=== PATIENT | female | born 1960 | race Caucasian/White ===

== ENCOUNTER 2023-04-11 20:37 | Emergency (ER) | payer MEDICAID, OTHER ==
[~2023-04-11] VITALS: TEMP 97.6; Ht 157.5 cm; Wt 111.4 kg
[2023-04-11] MEDS ORDERED: diphenhdrAMINE HCL 50 MG/1 ML VL IV ONE (21:00)
[2023-04-11] MEDS ORDERED: DexAMETHasone SOD PHOS 10MG/1ML VIAL INJ IV ONE (21:00)
[2023-04-11] MEDS ORDERED: FAMOTIDINE (10MG/ML) 2ML VL IV ONE (21:15)
[2023-04-11] MEDS ORDERED: EPINEPHrine HCL 0.5 ML NEB NEB ONE (21:15)
[2023-04-11 21:20] VITALS: PULSE 89; RESP 25; O2SAT 98
[2023-04-11] MEDS ORDERED: VANCOMYCIN 1GM/250ML 250 ML IV ONE (21:30)
[2023-04-11] MEDS ORDERED: AMPICILLIN & SULBACTAM SODIUM 3 GM in SODIUM CHL 0.9% 100 ML IV SCH (21:30)
[2023-04-11 21:35] LABS: Basophils # (auto) 0 10 ^3/uL (0-0.2); Basophils % (auto) 0.6 % (0.0-2.0); Eosinophils # (auto) 0.4 10 ^3/uL (0-0.8); Eosinophils % (auto) 5.3 % (0.0-7.0); Hemoglobin 13.7 g/dL (12.2-16.2); Mean Corpuscular Volume 80.7 fL (80.0-100.0); Neutrophils # (auto) 2.2 10 ^3/uL (1.6-8.6); Nucleated Red Blood Cells % 0.1 %
[2023-04-11 21:37] LABS: Hematocrit 42.7 % (36.0-46.0); Lymphocytes # (auto) 3.9 10 ^3/uL (0.4-5.4); Mean Corpuscular Hemoglobin 25.9 pg (28.0-32.0); Mean Corpuscular Hgb Conc. 32.1 g/dL (32.0-36.0); Monocytes # (auto) 0.5 10 ^3/uL (0-1.3); Monocytes % (auto) 7.3 % (0.0-12.0); Neutrophils % (auto) 31.5 % (37.0-80.0); Red Cell Distribution Width 14.5 % (11.8-14.3)
[2023-04-11 21:47] LABS: Lymphocytes % (auto) 55.3 % (10.0-50.0)
[2023-04-11 21:53] LABS: Alanine Aminotransferase 20 U/L (7-40); Albumin 4.4 g/dL (3.2-4.8); Alkaline Phosphatase 107 U/L (46-116); Anion Gap 7 (5-15); Aspartate Aminotransferase 22 U/L (13-40); BUN/Creatinine Ratio 14.8 (10.0-20.0); Bilirubin, Total 0.7 mg/dL (0.2-1.0); Blood Urea Nitrogen 13 mg/dL (9-23); Calcium 8.8 mg/dL (8.7-10.4); Carbon Dioxide 25 mmol/L (20-30); Chloride 106 mmol/L (98-107); Glucose 103 mg/dL (74-106); Potassium 3.4 mmol/L (3.5-5.1); Sodium 138 mmol/L (136-145); Total Protein 7.7 g/dL (5.7-8.2)
[2023-04-11 22:00] LABS: Magnesium 1.9 mg/dL (1.6-2.6)
[2023-04-11 22:17] LABS: INR 1.04 (0.9-1.15); Partial Thromboplastin Time 28.1 SEC (24.5-34.5); Prothrombin Time 10.9 sec (9.3-11.8)
[2023-04-11 22:19] LABS: CRP High Sensitivity 0.36 mg/dL (<1.0)
[2023-04-11] MEDS ORDERED: IOHEXOL 350 MG/ML 100ML IJ ONE (22:29)
[2023-04-11] MEDS ORDERED: ROCURONIUM 10MG/ML 10ML VIAL IV ONE (22:56)
[2023-04-11] MEDS: PROPOFOL 100 ML IV ONE ×2 (22:59→23:14)
[2023-04-11 23:00] VITALS: PULSE 102; RESP 19; O2SAT 98
[2023-04-11 23:27] LABS: Erythrocyte Sedimentation Rate 15 mm/hr (0-20)
[2023-04-12 00:04] LABS: Urine Bacteria MOD /hpf (None Seen); Urine Blood Negative /uL (Negative); Urine Clarity Clear (Clear); Urine Color Colorless (Yellow); Urine Protein, UAD Negative (Negative); Urine Specific Gravity 1.036 (1.001-1.035); Urine Urobilinogen Normal (Negative); Urine WBC 4 /hpf (0 - 5); Urine pH 5.5 (5.0-8.0)
[2023-04-12 00:39] LABS: Base Excess -0.4 mmol/L (-2.0-2.0)
[2023-04-12] MEDS ORDERED: ROCURONIUM 10MG/ML 10ML VIAL IV ONE (01:00)
[2023-04-12 02:23] VITALS: PULSE 98; RESP 16; TEMP 97.6; O2SAT 99
[2023-04-12] MEDS ORDERED: PROPOFOL 100 ML IV SCH (02:30)
[2023-04-12] MEDS: PROPOFOL 100 ML IV ONE ×2 (02:33→02:43)
== END 2023-04-12 03:26 | disposition short-term general hospital (02) ==
LOC: ER 20:37
DX: K12.2 Cellulitis and abscess of mouth (principal); R06.02 Shortness of breath; K04.7 Periapical abscess without sinus; R06.03 Acute respiratory distress
CPT/HCPCS: 31500; 36415; 36600; 70491; 71045; 80053; 81001; 82010; 82805; 83605; 83735; 83880; 83930; 85025; 85610; 85652; 85730; 86141; 87070; 87086; 87205; 93005; 94640; 96365; 96366; 96367; 96375; 99291; J1100; J1200; J2704; J3370; J3490; Q9967

== ENCOUNTER → 2023-10-18 | Outpatient (CLI) | payer MEDICAID ==
[~2023-10-18] VITALS: Ht 167.6 cm; Wt 100.7 kg
== END | disposition home or self-care (01) ==
LOC: Rad HDHVI 13:49
PROVIDERS: ATTEND Internal Medicine Cardiovascular Disease
DX: Z01.810 Encounter for preprocedural cardiovascular examination (principal); R00.0 Tachycardia, unspecified; I49.3 Ventricular premature depolarization; I10 Essential (primary) hypertension; Z82.49 Family history of ischemic heart disease and other diseases of the circulatory system; R06.00 Dyspnea, unspecified
CPT/HCPCS: 78452; 93017; 96374; A9500

== ENCOUNTER → 2023-10-24 | Outpatient (CLI) | payer MEDICAID | END | disposition home or self-care (01) | LOC: Rad HDHVI 08:49 | PROVIDERS: ATTEND Internal Medicine Cardiovascular Disease | DX: Z01.818 Encounter for other preprocedural examination (principal); I08.3 Combined rheumatic disorders of mitral, aortic and tricuspid valves | CPT/HCPCS: 93306 ==